=== PATIENT | female | born 1970 | race American Indian/Alaskan Native ===

== ENCOUNTER 2019-01-08 22:49 | Emergency (ER) | payer BC ==
[2019-01-08 22:54] VITALS: BMI 32.3
[2019-01-08 23:29] VITALS: TEMP 98.2
--- NOTE | 2019-01-09 00:25 | ED PDOC ---
Arrival/HPI - General Chief Complaint: Chest Pain Time Seen by Provider: 01/08/19 22:55 Historian: Patient - History of Present Illness Narrative History of Present Illness (Text): 01/09/19 00:27 A 48 year old female, whose past medical history includes hypertension, presents to the emergency department complaining of chest pain and shortness of breath. Patient describes chest pain as tightening, lasting for a few hours. Patient states she took Mylanta and baking soda in hopes to relieve pain, however symptoms did not improve. Patient denies any other complaints at this time. Past Medical History - Provider Review Nursing Documentation Reviewed: Yes - Cardiac Hx Hypertension: Yes - Psychiatric Hx Substance Use: No - Surgical History Other/Comment: LT BREAST SX..? LUMPECTOMY..NO TREATMENT REQUIRED - Anesthesia Hx Anesthesia: Yes Hx Anesthesia Reactions: No - Suicidal Assessment Feels Threatened In Home Enviroment: No Family/Social History - Physician Review Nursing Documentation Reviewed: Yes Family/Social History: No Known Family HX Smoking Status: Never Smoked Hx Alcohol Use: No Hx Substance Use: No Allergies/Home Meds Allergies/Adverse Reactions: Allergies BRIANNE Inhibitors Allergy (Verified 01/08/19 23:21) ANGIOEDEMA bisoprolol Allergy (Verified 01/08/19 23:21) ANGIOEDEMA hydrochlorothiazide Allergy (Verified 01/08/19 23:21) ANGIOEDEMA omeprazole Allergy (Verified 01/08/19 23:21) ANGIOEDEMA sulfamethoxazole [From Bactrim] Allergy (Verified 01/08/19 23:13) PAIN trimethoprim [From Bactrim] Allergy (Verified 01/08/19 23:13) PAIN Home Medications: Home Meds Medication Instructions Recorded Confirmed Amitriptyline HCl 10 mg PO DAILY 01/08/19 01/08/19 Review of Systems - Physician Review All systems were reviewed & negative as marked: Yes - Review of Systems Respiratory: SOB Cardiovascular: Chest Pain (described as tightness) Physical Exam - Physical Exam Narrative Physical Exam (Text): Gen: VS reviewed, alert, well developed, well nourished, nontoxic, mild distress Eye: EOMI, PERRL ENT: normal pharynx. Neck: no JVD, supple, no adenopathy CV: regular rate, regular rhythm, no rubs,no murmur, S1, S2; foyy-mm-[id number] tenderness to mid-lower sternum Pulm: no distress, clear to auscultation, no wheeze, no rhonchi, breath sounds equal, no rales Abd: soft, nontender, no guarding, no rebound, no rigidity Ext: no edema Skin: good color, no rash, no cyanosis Psych: responds appropriately to questions, normal affect Neuro: oriented x3, CN2-12 intact grossly, motor intact, sensation intact Vital Signs Reviewed: Yes Vital Signs Temp Pulse Resp BP Pulse Ox 01/08/19 23:28 98.2 F 55 L 16 129/87 97 Temperature: Afebrile Blood Pressure: Normal Pulse: Regular Respiratory Rate: Normal Appearance: Positive for: Well-Appearing, Non-Toxic, Comfortable Pain Distress: None Mental Status: Positive for: Alert and Oriented X 3 Medical Decision Making ED Course and Treatment: 01/09/19 00:28 Impression: 48 year old female with chest pain and shortness of breath. Physical exam shows [id number]-[id number]-[id number] tenderness to mid-lower sternum. Plan: EKG Labs CXR Reassess and disposition Progress Notes: 01/09/19 02:34 chest pain improved after dose of toradol. patient feels much better and ready to go home. patient understands and agreeable to return for any new or worsening symptoms. - RAD Interpretation Narrative RAD Interpretations (Text): 01/09/19 02:36 cxr my read: no focal infiltrate, no ptx, no wide mediastinum Radiology Orders: 01/09/19 00:05 CHEST PORTABLE [RAD] Stat Social Media Marketing Analyst: ED Physician - EKG Interpretation EKG Interpretation (Text): ekg my read: sinus bradycardia at 59 bpm, nml qrs, nml axis, no acute sttw abn Interpreted by ED Physician: Yes - Scribe Statement The provider has reviewed the documentation as recorded by the Scribe Eduardo Plunkett All medical record entries made by the Scribe were at my direction and personally dictated by me. I have reviewed the chart and agree that the record accurately reflects my personal performance of the history, physical exam, medical decision making, and the department course for this patient. I have also personally directed, reviewed, and agree with the discharge instructions and disposition. Disposition/Present on Arrival - Present on Arrival Any Indicators Present on Arrival: No History of DVT/PE: No History of Uncontrolled Diabetes: No Urinary Catheter: No History of Decub. Ulcer: No History Surgical Site Infection Following: None - Disposition Have Diagnosis and Disposition been Completed?: Yes Diagnosis: Chest wall pain Disposition: HOME/ ROUTINE Disposition Time: 00:25 Patient Plan: Discharge Condition: STABLE Discharge Instructions (ExitCare): Costochondritis (DC) Additional Instructions: return for any new or worsening symptoms. Prescriptions: Ibuprofen [Motrin Tab] 600 mg PO QID #30 tab Referrals: [facility] [Outside] - Follow up with primary Forms: [facility] (Wallisian), WORK NOTE
[2019-01-09 00:36] LABS: BASO # 0.01 K/mm3 (0.0-2.0); BASO % 0.2 % (0.0-3.0); EOS # 0.2 (0.0-0.7); EOS % 3.4 % (1.5-5.0); HEMOGLOBIN 12.5 g/dL (12.0-16.0); LYMPH # 3.7 (1.2-3.4); LYMPH % 67.2 % (22.0-35.0); MEAN CELL VOLUME 90.7 fl (80.0-105.0); MEAN CORPUSCULAR HEMOGLOBIN 30.5 pg (25.0-35.0); MEAN CORPUSCULAR HGB CONC 33.6 g/dl (31.0-37.0); MEAN PLATELET VOLUME 10.6 fl (7.0-11.0); MONO # 0.3 (0.1-0.6); MONO % 4.9 % (1.0-6.0); RBC 4.1 10^6/uL (3.5-6.1); RED CELL DISTRIBUTION WIDTH 13.4 % (11.5-14.5); WHITE BLOOD COUNT 5.6 10^3/uL (4.5-11.0)
[2019-01-09 00:56] LABS: ALB/GLOB RATIO 1.3 (1.1-1.8); ALBUMIN 3.7 g/dL (3.0-4.8); ALT/SGPT 37 U/L (7-56); AST/SGOT 35 U/L (14-36); BLOOD UREA NITROGEN 14 mg/dL (7-21); CALCIUM 9.1 mg/dL (8.4-10.5); GFR NON-AFRICAN AMERICAN > 60; LIPASE 80 U/L (23-300)
[2019-01-09 01:06] LABS: TROPONIN I < 0.01 ng/mL
[2019-01-09 01:20] VITALS: RESP 18; O2SAT 98
[2019-01-09 02:43] VITALS: BP 125/82; PULSE 58
--- NOTE | 2019-01-09 08:39 | RAD ---
Date of service: 01/09/2019 HISTORY: chest pain COMPARISON: No prior. TECHNIQUE: 1 view obtained. FINDINGS: LUNGS: No active pulmonary disease. PLEURA: No significant pleural effusion identified, no pneumothorax apparent. CARDIOVASCULAR: No aortic atherosclerotic calcification present. Normal cardiac size. No pulmonary vascular congestion. OSSEOUS STRUCTURES: No significant abnormalities. VISUALIZED UPPER ABDOMEN: Normal. OTHER FINDINGS: None. IMPRESSION: No active disease.
--- NOTE | 2019-01-09 15:45 | CARD ---
APPROVED REPORT Date of service: 01/08/2019 EKG Measurement Heart [id number] <Conclusion> Sinus bradycardia Otherwise normal ECG
== END 2019-01-09 02:43 | disposition home or self-care (01) ==
LOC: ED 22:49
DX: R07.89 Other chest pain (principal); I10 Essential (primary) hypertension
CPT/HCPCS: 71045; 80053; 83690; 84484; 85025; 93005; 96374; 99284; J1885

== ENCOUNTER 2019-01-17 06:43 | Emergency (ER) | payer BC ==
[2019-01-17 06:43] VITALS: BMI 32.3
[2019-01-17 07:01] VITALS: BP 142/91; PULSE 63; RESP 17; TEMP 99.3; O2SAT 100
--- NOTE | 2019-01-17 07:30 | ED PDOC ---
Arrival/HPI <Peterson Bob - Last Filed: 01/17/19 07:41> - General Historian: Patient - History of Present Illness Narrative History of Present Illness (Text): 01/17/19 07:25 Pt is a 48yo female with a PMH of hypertension, and reports being diagnosed with esophageal dysmotility who presents to the ED complaining of chest discomfort, belching for the past 2 years. Pt sees a GI specialist who recommended a CT scan. Pt presented today asking for a CT scan because she is tired of waiting. Pt reports that she has augmented her diet to help relieve the symptoms, she does not eat before bed. Denies vomiting, nausea, and diarrhea. Time/Duration: Other (2 years) Symptom Onset: Gradual Symptom Course: Unchanged Quality: Gas Like Severity Level: 4 Activities at Onset: Rest Context: Sitting <Naldo Avilez - Last Filed: 01/17/19 07:50> - General Chief Complaint: Chest Pain Past Medical History - Cardiac Hx Hypertension: Yes - Gastrointestinal Other/Comment: "Esophageal Motility" - Psychiatric Hx Substance Use: No - Surgical History Other/Comment: LT BREAST SX..? LUMPECTOMY..NO TREATMENT REQUIRED - Anesthesia Hx Anesthesia: Yes Hx Anesthesia Reactions: No - Suicidal Assessment Feels Threatened In Home Enviroment: No <Naldo Avilez - Last Filed: 01/17/19 07:50> Family/Social History Family/Social History: Hypertension, Neoplasm/Cancer Smoking Status: Never Smoked Hx Alcohol Use: No Hx Substance Use: No <Naldo Aivlez - Last Filed: 01/17/19 07:50> Allergies/Home Meds <Peterson Bob - Last Filed: 01/17/19 07:41> <Naldo Avilez - Last Filed: 01/17/19 07:50> Allergies/Adverse Reactions: Allergies BRIANNE Inhibitors Allergy (Verified 01/17/19 06:55) ANGIOEDEMA bisoprolol Allergy (Verified 01/17/19 06:55) ANGIOEDEMA hydrochlorothiazide Allergy (Verified 01/17/19 06:55) ANGIOEDEMA omeprazole Allergy (Verified 01/17/19 06:55) ANGIOEDEMA sulfamethoxazole [From Bactrim] Allergy (Verified 01/17/19 06:55) PAIN trimethoprim [From Bactrim] Allergy (Verified 01/17/19 06:55) PAIN Review of Systems - Review of Systems Constitutional: Normal Eyes: Normal ENT: Normal Respiratory: Normal Cardiovascular: Normal Gastrointestinal: Constipation Genitourinary Female: Normal Musculoskeletal: Normal Skin: Normal Neurological: Normal Endocrine: Normal Hemo/Lymphatic: Normal Psychiatric: Normal <Naldo Avilezron - Last Filed: 01/17/19 07:50> Physical Exam Vital Signs Temp Pulse Resp BP Pulse Ox 01/17/19 06:57 99.3 F 63 17 142/91 H 100 <Peterson Bob - Last Filed: 01/17/19 07:41> Vital Signs Reviewed: Yes Vital Signs Temp Pulse Resp BP Pulse Ox 01/17/19 06:57 99.3 F 63 17 142/91 H 100 Temperature: Afebrile Blood Pressure: Normal Pulse: Regular Respiratory Rate: Normal Appearance: Positive for: Well-Appearing Mental Status: Positive for: Alert and Oriented X 3 - Systems Exam Head: Present: Atraumatic, Normocephalic Pupils: Present: PERRL Extroacular Muscles: Present: EOMI Mouth: Present: Moist Mucous Membranes Neck: Present: Normal Range of Motion Respiratory/Chest: Present: Clear to Auscultation, Good Air Exchange. No: Respiratory Distress, Accessory Muscle Use Cardiovascular: Present: Regular Rate and Rhythm, Normal S1, S2 Abdomen: Present: Normal Bowel Sounds. No: Tenderness, Distention Upper Extremity: Present: Normal Inspection Lower Extremity: Present: Normal Inspection Neurological: Present: GCS=15, CN II-XII Intact Skin: Present: Warm, Dry Psychiatric: Present: Alert, Oriented x 3 <Naldo Avilez Bharat - Last Filed: 01/17/19 07:50> Medical Decision Making ED Course and Treatment: 01/17/19 07:41 Patient Seen with Resident: In agreement with resident note which contains more details about the patient. Patient seen and evaluated with resident. Came up with plan and treatment together. 48 year old female presents to emergency department with complaints of epigastric burning for the past two years. Patient is in no acute distress and refused EKG. Patient is requesting CAT scan but is unsure of specific type of CAT scan requested by assistant secretary. Physician informed patient of risk of radiation and patient is agreeable to foregoing scan at this time till following up with private assistant secretary. <Peterson Bob - Last Filed: 01/17/19 07:41> ED Course and Treatment: 01/17/19 07:34 discussed with pt the risks of ionizing radiation with CT advised pt to follow with the GI physician to determine the correct imaging needed pt refusing CT scan Pt seen, examined, assessment and plan discussed with Dr Lisbeth Avilez PGY1 <Naldo Avilez - Last Filed: 01/17/19 07:50> - PA / HEAD STOCK OPERATOR / Resident Statement BERRY has reviewed & agrees with the documentation as recorded. BERRY has examined the patient and agrees with the treatment plan. - Scribe Statement The provider has reviewed the documentation as recorded by the Scribe Shaila Garcia All medical record entries made by the Scribe were at my direction and personally dictated by me. I have reviewed the chart and agree that the record accurately reflects my personal performance of the history, physical exam, medical decision making, and the department course for this patient. I have also personally directed, reviewed, and agree with the discharge instructions and disposition. <Peterson Bob - Last Filed: 01/17/19 07:41> Disposition/Present on Arrival <Peterson Bob - Last Filed: 01/17/19 07:41> - Present on Arrival Any Indicators Present on Arrival: No History of DVT/PE: No History of Uncontrolled Diabetes: No Urinary Catheter: No History of Decub. Ulcer: No History Surgical Site Infection Following: None - Disposition Have Diagnosis and Disposition been Completed?: Yes Disposition Time: 07:50 Patient Plan: Discharge <Naldo Avilez - Last Filed: 01/17/19 07:50> - Disposition Diagnosis: Epigastric burning sensation Disposition: HOME/ ROUTINE Patient Problems: Current Active Problems Problem Status Onset Epigastric burning sensation Acute Condition: FAIR Discharge Instructions (ExitCare): Dysphagia Prescriptions: Phenobarb/Hyoscy/Atropine/Scop [ Tablet] 16.2 mg PO Q8H #15 tablet Referrals: Danny Roche MD [Primary Care Provider] - Follow up with primary Forms: [employer] (Bengali)
== END 2019-01-17 08:00 | disposition home or self-care (01) ==
LOC: ED 06:43
DX: R10.13 Epigastric pain (principal); I10 Essential (primary) hypertension